=== PATIENT | female | born 1965 | race Hispanic/Latino ===

== ENCOUNTER 2016-08-31 17:46 | Emergency (ER) | payer OTHER ==
[~2016-08-31 17:46] MED LIST: IMODIUM 2 MG. CA2 MG PO; METFORMIN HCL500 M3 PO; MOTRIN 600 MG600 MG PO; NORFLEX100 MG PO; PRILOSEC OTC20 MG PO; TRIMETHOBENZAM300 M1 PO; ZOFRAN ODT4 MG PO
--- NOTE | 2016-08-31 18:22 | ED GI/GU/ABDOMINAL COMPLAINT ---
History of Present Illness General Chief Complaint: Abdominal Pain/Flank Pain Stated Complaint: R SIDED ABD PAIN Source: patient Exam Limitations: no limitations Vital Signs & Intake/Output Vital Signs & Intake/Output Vital Signs Date Time Temp Pulse Resp B/P Pulse O2 O2 Flow FiO2 Ox Delivery Rate 08/31 2018 98.0 60 16 147/93 98 Room Air 08/31 1749 96.5 66 20 148/91 100 Room Air Allergies Coded Allergies: NO KNOWN ALLERGIES (02/09/14) Reconcile Medications Aspirin (Lo-Dose Aspirin EC) 81 MG TABLET.DR 1 TAB PO DAILY HEART/BLOOD ( Reported) Hyoscyamine (Levsin) 0.125 MG TABLET 1 TAB PO Q4 PRN ABDOMINAL SPASMS Ibuprofen 600 MG TABLET 1 TAB PO PRN PAIN/INFLAMMATION (Reported) with food Lisinopril 2.5 MG TABLET 1 TAB PO DAILY BP (Reported) Metformin HCl 500 MG TABLET 1 TAB PO BID DM (Reported) Pantoprazole Sodium 40 MG TABLET.DR 1 TAB PO DAILY GI (Reported) Pravastatin Sodium 10 MG TABLET 1 TAB PO DAILY CHOLESTEROL (Reported) Triage Note: PT TO ED C/O ABD PAIN SINCE SATURDAY. DENIES N/V/D. DENIES S/S. Triage Nurses Notes Reviewed? yes ? n Is pt currently ? No Onset: Gradual Duration: waxing and waning (6 days) Timing: recent history Quality/Severity: cramping Location: generalized abdomen Radiation: no radiation Activities at Onset: none Prior Abdominal Problems: none Past Sexual History: Unobtainable at this time HPI: Patient is a 51-year-old female presenting to the emergency Department chief complaint of generalized abdominal discomfort and bloating for the past 6 days. She reports that she's been eating and drinking well without difficulty. No nausea or vomiting. Denies any diarrhea or urinary symptoms. She reports that her last bowel movement was yesterday and normal. No sick contacts or recent travel. Denies any antibiotic use. Denies taking anything at home to help with pain. Denies chest pain palpitations shortness of breath. (JENNIFER MOSS,DRAGAN) Past History Travel History Traveled to [place] past 21 day No Medical History Any Pertinent Medical History? see below for history Cardiovascular: NONE Respiratory: NONE Endocrine: diabetes Surgical History Surgical History: perineocoele 04/26/15 Psychosocial History Who do you live with Family What is your primary language Romanian Tobacco Use: Never used ETOH Use: denies use Illicit Drug Use: denies illicit drug use Family History Hx Contributory? No (DRAGAN CAMARGO) Review of Systems Review of Systems Constitutional: Reports: no symptoms. Comments Review of systems: See HPI, All other systems negative. Constitutional, no chills fever or weight loss HEENT: No visual changes no sore throat no congestion Cardiovascular: No chest pain ,palpitation , orthopnea or ankle swelling Skin, no jaundice no rashes Respiratory: No dyspnea cough sputum or hemoptysis GI: No nausea no vomiting : No dysuria No hematuria Muscle skeletal: no back pain, no neck pain, Neurologic: No numbness no confusion, no headaches Psych: No stress anxiety or depression,. Heme/endocrine: No bruising no bleeding no polyuria or polydipsia Immunology: No splenectomy or history of AIDS (DRAGAN CAMARGO) Physical Exam Physical Exam General Appearance: well developed/nourished, no apparent distress, alert, awake , comfortable Gastrointestinal: normal bowel sounds, soft, tenderness Comments: Well-developed well-nourished person in no acute distress HEENT: Pupils equally round and reactive to light and accommodation. Nose is atraumatic. Neck: Normal inspection Cardiovascular: Regular rate and rhythms no murmurs rubs or gallops, normal JVP Respiratory: Chest nontender. No respiratory distress.breath sounds clear to auscultation bilaterally Abdomen: Soft, tender to palpation in the periumbilical region, no rebound or guarding, nondistended, no appreciable organomegaly. Normal bowel sounds. No ascites Extremity: No edema Neuro: Alert oriented x3 Skin: No appreciable rash on exposed skin, skin is warm and dry. Psych: Mood and affect is normal, memory and judgment is normal. Core Measures ACS in differential dx? No Severe Sepsis Present: No Septic Shock Present: No (DRAGAN CAMARGO) Progress Differential Diagnosis: appendicitis, biliary colic, bowel obstruction, cholecystitis, diverticulitis, viral syndrome, gastritis Plan of Care: Orders Procedure Date/time Status URINALYSIS 08/31 1820 Complete C-REACTIVE PROTEIN 08/31 1820 Complete COMPREHENSIVE METABOLIC PANEL 08/31 1820 Complete CBC WITHOUT DIFFERENTIAL 08/31 1820 Complete Laboratory Tests 08/31/16 1934: Urine Color YEL, Urine Clarity CLEAR, Urine pH 7.0, Ur Specific [place] 1.010, Urine Protein NEG, Urine Ketones NEG, Urine Nitrite NEG, Urine Bilirubin NEG, Urine Urobilinogen 0.2, Ur Leukocyte Esterase NEG, Ur Microscopic EXAM NOT REQUIRED, Urine Hemoglobin NEG, Urine Glucose NEG 08/31/16 1856: Anion Gap 11, Estimated GFR > 60, BUN/Creatinine Ratio 16.7, Glucose 131 H, Calcium 9.2, Total Bilirubin 0.2, AST 51 H, ALT 51, Alkaline Phosphatase 117, C -Reactive Prot, Quant < 0.5, Total Protein 7.2, Albumin 4.1, Globulin 3.1, Albumin/Globulin Ratio 1.3, CBC w Diff NO MAN DIFF REQ, RBC 3.79 L, MCV 90.0, MCH 30.5, RDW 13.0, MPV 8.9, Gran % 51.9, Lymphocytes % 39.2, Monocytes % 7.5, Eosinophils % 1.1, Basophils % 0.3, Absolute Granulocytes 3.4, Absolute Lymphocytes 2.6, Absolute Monocytes 0.5, Absolute Eosinophils 0.1, Absolute Basophils 0, PUBS MCHC 33.8 Initial ED EKG: none Comments: on arrival patient noted to chest vitals within normal range. Patient has no associated symptoms with her abdominal discomfort. She does have reproducible pain in the periumbilical region. Nonspecific. No guarding. Patient will have CBC, CMP, CRP and urinalysis evaluated. Patient given IV fluids, Levsin. 08/31/2016 8:37:22 PM Patient reports improvement in symptoms with Levsin and fluids. She is informed of all lab work results. No indication for imaging of this time. (DRAGAN CAMARGO) Departure Departure Time of Disposition: 2001 Disposition: HOME OR SELF CARE Condition: Stable Clinical Impression Primary Impression: Abdominal pain Qualifiers: Abdominal location: unspecified location Qualified Code: R10.9 - Unspecified abdominal pain Referrals: RITIKA WORKMAN APRN (PCP/Family) Additional Instructions: Follow-up with her primary care physician call to make appointment. Take Levsin as prescribed for abdominal discomfort. Increase fluids. Return for worsening symptoms or concerns. Departure Forms: Customer Survey General Discharge Information Prescriptions: Current Visit Scripts Hyoscyamine (Levsin) 1 TAB PO Q4 PRN ABDOMINAL SPASMS #40 TAB (DRAGAN CAMARGO) PA/BISCUIT PACKER Co-Sign Statement Statement: ED Attending supervision documentation- [] I saw and evaluated the patient. I have also reviewed all the pertinent lab results and diagnostic results. I agree with the findings and the plan of care as documented in the PA's/BISCUIT PACKER's documentation. [x] I have reviewed the ED Record and agree with the PA's/BISCUIT PACKER's documentation. [] Additions or exceptions (if any) to the PAs/BISCUIT PACKER's note and plan are summarized below: [] (LATRICE SANITZO,OSIRIS Castillo)
[2016-08-31] MEDS ORDERED: PRAVASTATIN SOD10 M2 PO (18:45)
[2016-08-31] MEDS ORDERED: LISINOPRIL2.5 M1 PO (18:46)
[2016-08-31] MEDS ORDERED: IBUPROFEN600 M1 PO (18:46)
[2016-08-31] MEDS ORDERED: PANTOPRAZOLE SO40 M1 PO (18:46)
[2016-08-31] MEDS ORDERED: LO-DOSE ASPIRIN81 MG PO (18:47)
[2016-08-31 19:06] LABS: ABSOLUTE BASOPHIL COUNT 0 /CUMM (0.0-0.2); ABSOLUTE EOSINOPHIL COUNT 0.1 /CUMM (0.0-0.7); ABSOLUTE GRANULOCYTE CT 3.4 /CUMM (1.4-6.5); ABSOLUTE LYMPH COUNT 2.6 /CUMM (1.2-3.4); ABSOLUTE MONOCYTE COUNT 0.5 /CUMM (0.10-0.60); BASOPHIL % 0.3 % (0.0-2.0); EOSINOPHIL % 1.1 % (0-5); GRANULOCYTE % 51.9 % (42.2-75.2); HEMATOCRIT 34.1 % (37-47); MEAN CORPUSCULAR HGB 30.5 PG (27.0-31.0); MEAN CORPUSCULAR HGB CONC 33.8 G/DL (33.0-37.0); MEAN PLATELET VOLUME 8.9 FL (7.4-10.4); PLATELET COUNT 212 /CUMM (130-400); RED BLOOD CELL CT 3.79 /CUMM (4.20-5.40); WHITE BLOOD CELL COUNT 6.5 /CUMM (4.8-10.8)
[2016-08-31] MEDS ORDERED: LEVSIN0.125 M1 PO (20:04)
[2016-08-31 20:19] VITALS: BP 147/93
== END 2016-08-31 20:28 ==
LOC: ERH 17:46
PROVIDERS: Physician Assistant
DX: R10.33 Periumbilical pain (principal)
CPT/HCPCS: 81003; 96361; 96374